=== PATIENT | female | born 1945 | race Caucasian/White ===

== ENCOUNTER 2021-02-18 13:22 | Emergency (ER) | payer MEDICARE, SELFPAY ==
--- NOTE | ~2021-02-18 | CT_ITS ---
EXAMINATION: CT ANGIOGRAM OF THE CHEST WITH AND WITHOUT CONTRAST (CT PULMONARY ANGIOGRAM FOR PE) CLINICAL INFORMATION: AMANDA, chest pain, SOB COMPARISON: Chest x-ray earlier today prior CTA chest 07/21/2011 TECHNIQUE: Prior to contrast administration, noncontrast localization images were obtained. Subsequently, multidetector volumetric imaging was performed from the thoracic inlet to below the diaphragms following the administration of 80 mL Omnipaque 350 intravenous contrast. No contrast reaction reported Sagittal, coronal, and MIP oblique sagittal reformatted images were obtained on the CT workstation, uploaded to PACS, and reviewed. This CT examination was performed using dose optimization techniques as appropriate, variously including the following: *Automated exposure control *Adjustment of mA and/or kV according to patient size (this includes techniques or standardized protocols for targeted exams where dose is matched to indication/reason for exam; i.e. extremities or head) *Use of iterative reconstruction technique FINDINGS: QUALITY OF STUDY/CONTRAST BOLUS: Suboptimal. There is extensive respiratory motion artifact. PULMONARY ARTERIES: No central pulmonary embolus seen. THORACIC AORTA: No aneurysm or dissection. LUNG: Extensive respiratory motion artifact. No focal consolidation or mass. PLEURA: No pleural effusion or pneumothorax. MEDIASTINUM: Mild cardiomegaly. No pericardial effusion. No hilar or mediastinal lymphadenopathy. No evidence of septal bowing or right heart strain. CHEST WALL/AXILLA: No axillary or internal mammary lymphadenopathy. OSSEOUS STRUCTURES: Multilevel degenerative changes of the spine. No acute or suspicious osseous abnormality. UPPER ABDOMEN: Unchanged hepatic cysts. Persistent diffuse prominence of the left adrenal gland. Normal right adrenal gland. Gallstones. No reflux of contrast into the hepatic veins to suggest elevated right heart pressures. CT/CT angio chest PE protocol IMPRESSION: Limited study due to extensive respiratory motion artifact. No central pulmonary embolus seen.
--- NOTE | ~2021-02-18 | US_ITS ---
EXAMINATION: US VENOUS ULTRASOUND WITH DOPPLER LOWER EXTREMITY, LEFT CLINICAL INFORMATION: swelling, redness COMPARISON: 08/08/2020 TECHNIQUE: Ultrasound of the deep veins is performed from the hip to the calf with compression sonography and color and pulse Doppler assessment. Spectral analysis with color-flow imaging is performed. FINDINGS: There is normal venous compression and respiratory variation and augmented flow. The visualized common femoral vein, superficial femoral vein, profunda femoral vein, popliteal vein, and the trifurcation region shows no evidence of deep venous thrombosis. A small Duong's cyst is noted (4.2 x 1.1 x 1.5 cm). Peroneal veins are not well seen due to overlying soft tissue edema. If the patient's symptoms persist, followup ultrasound in 5 days 7 days might be of value to exclude proximal propagation from a non-visualized calf vein. US/US venous duplex LE IMPRESSION: No DVT demonstrated in the left lower extremity.
--- NOTE | ~2021-02-18 | XR_ITS ---
EXAMINATION: XR CHEST CLINICAL INFORMATION: Shortness of breath COMPARISON: Chest x-ray 11/20/2015 TECHNIQUE: 2 views of the chest were obtained. FINDINGS: Lungs are clear. No pulmonary vascular congestion. There is no pleural effusion. The heart size is normal. The cardiac and mediastinal contours are normal. There are calcifications of the thoracic aorta. There are multilevel degenerative changes of dorsal spine. XR/XR chest 2V IMPRESSION: Unremarkable examination.
[2021-02-18 13:48] VITALS: BP 141/75; PULSE 92; RESP 20; TEMP 36.5; O2SAT 96; BMI 35.3
[2021-02-18 14:19] LABS: COVID-19 Test Negative (Negative)
[2021-02-18 17:08] LABS: MANUAL DIFF FLAG NO
[2021-02-18 17:10] LABS: Basophils Absolute Auto 0.1 X10*3/uL (0.0-0.2); Basophils Percent Auto 0.5 % (0-2); Eosinophils Absolute Auto 0.2 X10*3/uL (0.0-0.4); Hemoglobin 12.9 g/dl (12.0-16.0); Imm Gran Abs Auto 0.02 X10*3/uL (0.00-0.03); Imm Gran Pct Auto 0.2 % (0.0-0.4); Lymphocytes Absolute Auto 1.2 X10*3/uL (1.2-4.9); Lymphocytes Percent Auto 11.3 % (20-40); Mean Corpuscular HGB Conc 31.5 g/dl (31.0-35.0); Mean Corpuscular Hemoglobin 27.2 pg (27.0-33.0); Mean Corpuscular Volume 86.5 fL (80.0-98.0); Monocytes Absolute Auto 0.6 X10*3/uL (0.1-1.2); Monocytes Percent Auto 5.8 % (2-11); Neutrophils Absolute Auto 8.8 x10*3/uL (2.0-8.3); Neutrophils Percent Auto 80.2 % (45-73); Platelet Count 250 X10*3/uL (160-400); Red Blood Count 4.74 X10*6/uL (4.20-5.50); Red Cell Distribution Width 17.3 % (11.0-16.0)
[2021-02-18 17:27] LABS: Alanine Aminotransferase 24 U/L (0-31); Alkaline Phosphatase 106 U/L (39-117); Anion Gap 12 (12-20); Aspartate Amino Transferase 16 U/L (5-31); Bilirubin Total 0.6 mg/dL (0.0-1.0); Blood Urea Nitrogen 23 mg/dL (9-16); Calcium 9.8 mg/dL (8.4-10.2); Carbon Dioxide 28 mmol/L (22-29); Chloride 109 mmol/L (96-108); Creatinine Clr Calc Pharmacy 45.9; Estimated Glomerular Filt Rate 44; Glucose Random 169 mg/dL (60-115); Potassium 4.6 mmol/L (3.3-5.1); Sodium 144 mmol/L (135-145); Total Protein 6.8 g/dL (6.5-8.0)
--- NOTE | 2021-02-18 18:38 | ECG_ITS ---
Test Reason : SOB Blood Pressure : / mmHG Vent. Rate : 086 BPM Atrial Rate : 086 BPM P-R Int : 158 ms QRS Dur : 112 ms QT Int : 382 ms P-R-T Axes : 050 -07 111 degrees QTc Int : 457 ms Normal sinus rhythm Left ventricular hypertrophy with repolarization abnormality ( Richy product ) Abnormal ECG When compared with ECG of 20-NOV-2015 12:05, No significant change was found Referred By: Marika Rehman Electronically Signed By:UMER ANAYA MD
[2021-02-18 18:42] VITALS: BP 161/68; PULSE 93; RESP 20; TEMP 36.7; O2SAT 96
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
--- NOTE | 2021-02-18 19:31 | PC.NURSE ---
pt resting in stretcher, pt awaiting for respiratory with tx. pt denies any complaints and watching tv at this time.
[2021-02-18 19:34] LABS: B Type Natriuretic Peptide 249 pg/mL (<100)
[2021-02-18] MEDS: Albuterol/Iprat 2.5/0.5MG 3 ML AMPUL.NEB INHALE (19:40)
[2021-02-18 19:43] VITALS: PULSE 93; RESP 18; O2SAT 96
--- NOTE | 2021-02-18 20:37 | PC.NURSE ---
respiratory in room for tx. IV placed for pt to go to Ct. CT aware pt is ready.
[2021-02-18 20:42] LABS: Troponin-I High Sensitivity 83.2 ng/L (<3.5-17.0)
[2021-02-18 21:06] VITALS: BP 123/91; PULSE 100; RESP 20; TEMP 36.8; O2SAT 93
[2021-02-18] MEDS: iohexoL 350 MG/ML 100 ML INFUS..BTL 65 ML IV (21:11)
[2021-02-18] MEDS: Aspirin 81 MG TAB.CHEW 162 MG PO (21:16)
[2021-02-18 21:47] LABS: Troponin-I High Sensitivity 93.4 ng/L (<3.5-17.0)
--- NOTE | 2021-02-18 22:08 | PC.NURSE ---
in room for re-eval. respiratory tx ordered for pt. pt awaiting for further orders. pt remains alert, respirations easy, n/l. skin w/d.
[2021-02-18] MEDS: methylPREDNISolone Sod Succ 125 MG/2 ML VIAL IVPUSH (22:40)
--- NOTE | 2021-02-18 22:43 | PC.NURSE ---
pt medicated as per emar.
[2021-02-18] MEDS: Albuterol Sulfate (0.083%) 2.5 MG/3 ML VIAL.NEB 5 MG INHALE (22:44)
[2021-02-18 22:46] VITALS: PULSE 106; RESP 20; O2SAT 95
[2021-02-18 22:49] VITALS: BP 156/78; PULSE 94; RESP 20; O2SAT 100
== END 2021-02-18 23:19 | disposition home or self-care (01) ==
PROVIDERS: Physician Assistant; Emergency Provider Internal Medicine; PCP Internal Medicine
DX: R06.00 Dyspnea, unspecified (principal); E11.9 Type 2 diabetes mellitus without complications; I10 Essential (primary) hypertension; R60.0 Localized edema; Z87.891 Personal history of nicotine dependence; Z20.822 Contact with and (suspected) exposure to COVID-19
CPT/HCPCS: 36415; 71046; 71275; 80053; 83880; 84484; 85025; 87635; 93005; 93971; 94640; 94644; 96374; 99283; 99284; J2930; Q9967

== ENCOUNTER → 2021-04-04 15:28 | Outpatient (BNVA) | payer MEDICARE, SELFPAY | PROVIDERS: PCP Internal Medicine; Visit Provider Hospitalist | DX: J44.9 Chronic obstructive pulmonary disease, unspecified (principal) | CPT/HCPCS: 99202 ==

== ENCOUNTER 2021-04-09 18:13 | Emergency (ER) | payer MEDICARE, SELFPAY ==
--- NOTE | ~2021-04-09 | XR_ITS ---
EXAMINATION: XR CHEST CLINICAL INFORMATION: Shortness of breath. COMPARISON: Prior chest February 2021. CT chest 02/18/2021. TECHNIQUE: Frontal view of the chest was obtained. FINDINGS: There are small bilateral pleural effusions. Lung volumes are decreased. Linear opacity at the bases. Additional more patchy consolidation at the bases and increased interstitial markings bilaterally. Cardiac silhouette is mildly enlarged but unchanged and partially obscured by the effusions. Calcification of the dorsal aorta. Bone and soft tissues unremarkable. XR/XR chest 1V IMPRESSION: 1. Findings suspicious for congestive heart failure with bilateral airspace disease and bilateral pleural effusions. Bibasilar atelectasis. 2. Cannot exclude pneumonia.
[2021-04-09 18:16] VITALS: BP 128/76; PULSE 112; RESP 30; TEMP 36.7; O2SAT 73; BMI 36.6
--- NOTE | 2021-04-09 18:29 | PC.NURSE ---
Pt arrives from triage cc dyspnea. pt 73% on RA. Pt placed on 6L O2. O2 sats 96%.
[2021-04-09 18:30] VITALS: O2SAT 96
--- NOTE | 2021-04-09 18:33 | ED.SOB ---
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 comes for increased shortness of breath for last 4- 5 days getting worse now patient denies any chest patient denies any chest pain patient is saturating 73% at room air she is not on any oxygen at home Related Data Home Medications Medication Instructions Recorded Confirmed amlodipine 10 mg tablet 10 mg PO DAILY 04/04/21 atorvastatin 40 mg tablet 40 mg PO DAILY 04/04/21 insulin glargine 100 unit/mL (3 64 unit SUBCUT BEDTIME 04/04/21 mL) subcutaneous pen (Lantus Solostar U-100 Insulin) insulin glulisine U-100 100 SUBCUT 04/04/21 unit/mL subcutaneous solution (Apidra U-100 Insulin) insulin lispro 100 unit/mL SUBCUT 04/04/21 subcutaneous pen levothyroxine 125 mcg tablet 125 mcg PO DAILY 04/04/21 lisinopril 10 mg tablet 20 mg PO DAILY 04/04/21 metoprolol succinate 50 mg 50 mg PO DAILY 04/04/21 tablet,extended release 24 hr tiotropium bromide 18 mcg capsule 1 cap INHALATION DAILY 04/04/21 with inhalation device (Spiriva with HandiHaler) Previous Rx's Medication Instructions Recorded albuterol sulfate 90 mcg/actuation 2 puff INHALATION Q4-6H PRN #8.5 g 02/18/21 aerosol inhaler (ProAir HFA) furosemide 20 mg tablet (Lasix) 20 mg PO QAM #30 tab 02/18/21 albuterol sulfate 90 mcg/actuation 2 inh INHALATION Q6H PRN 30 Days 04/04/21 aerosol inhaler #18 g fluticasone fur. 100 mcg-umeclid 1 inh INHALATION DAILY 30 Days #60 04/04/21 62.5 mcg-vilant 25 mcg ea inhalat.powder (Trelegy Ellipta) Allergies Allergy/AdvReac Type Severity Reaction Status Date / Time From ZOSYN Allergy Unknown ANGIOEDEMA, Uncoded 04/04/21 15:36 RED RASH zosyn Allergy Unknown rash Uncoded 04/04/21 15:36 Review of Systems Review of Systems: Yes all other systems are reviewed and are negative [facility] Past Medical History Medical History COPD (chronic obstructive pulmonary disease) Social History Social History Patient Tobacco Use Status: Former Tobacco user Tobacco use type: Cigarette Years Smoked: 50 years Advance Directives: No Advance Directives Information Provided: No Physical Exam Vital Signs: Vital Signs: Last Vital Signs Temp 98.6 F 04/09/21 19:43 Pulse 100 04/09/21 20:09 Resp 17 04/09/21 20:09 BP 115/56 L 04/09/21 20:09 Pulse Ox 94 04/09/21 20:09 BMI result Body Mass Index 36.6 Appearance: Alert. Oriented X3. In moderate respiratory distress Eyes: PERRLA, No Nystagmus no pallor icterus ENT: Pharynx normal. Oral Mucosa moist Neck: Normal inspection. Neck supple. CVS: Normal heart rate and rhythm. Pulses normal. Respiratory: No respiratory distress. Equal air entry bilateral, bilateral prolonged expiration with diffuse crackles Abdomen: Soft and nontender. Bowel sounds are present, no mass palpable, Skin: Skin warm and dry. Normal skin color. Normal skin turgor. Extremities:2+ lower extremity edema. No calf tenderness Neuro: Oriented X 3. No motor deficit. MDM - SOB/Dyspnea MDM Narrative Medical decision making narrative: Patient with COPD increased shortness of breath no known coronary artery disease was seen here on 02/18/2021 1 troponin was elevated to 83.2 but there was no delta change. At this time patient came with worsening of shortness of breath for 4 5 days got worse since last night EKG showed ST elevation with significant ST depression in inferolateral leads case discussed Dr. Song at [facility] cardiac catheterization will take the patient for cardiac catheterization patient received 180 mg of Brilinta 324 mg of aspirin 5000 units of heparin and 40 mg IV Lasix Lab Data Attestation: I reviewed the patient's lab results. Result diagrams: 04/09/21 19:28 04/09/21 19:28 Labs: Lab Results 04/09/21 04/09/21 04/09/21 Range/Units 19:28 19:28 19:28 WBC 18.7 H (4.8-10.8) X10*3/uL RBC 4.60 (4.20-5.50) X10*6/uL Hgb 12.2 (12.0-16.0) g/dl Hct 41.4 (37.0-47.0) % MCV 90.0 (80.0-98.0) fL MCH 26.5 L (27.0-33.0) pg MCHC 29.5 L (31.0-35.0) g/dl RDW 18.2 H (11.0-16.0) % Plt Count 264 (160-400) X10*3/uL MPV 10.9 (9.4-12.3) fL Immature Gran % (Auto) 0.5 H (0.0-0.4) % Neut % (Auto) 91.7 H (45-73) % Lymph % (Auto) 3.5 L (20-40) % [place] % (Auto) 4.1 (2-11) % Eos % (Auto) 0.0 (0-4) % Baso % (Auto) 0.2 (0-2) % Lymph # (Auto) 0.7 L (1.2-4.9) X10*3/uL [place] # (Auto) 0.8 (0.1-1.2) X10*3/uL Eos # (Auto) 0.0 (0.0-0.4) X10*3/uL Baso # (Auto) 0.0 (0.0-0.2) X10*3/uL Abs Immat Gran (auto) 0.10 H (0.00-0.03) X10*3/uL Absolute Neuts (auto) 17.1 H (2.0-8.3) x10*3/uL Absolute Nucleated RBC 0.000 (0.0-0.012) X10*3/uL Nucleated RBC % (auto) 0.0 (0.0-0.2) /100WBC VBG pH (7.32-7.43) VBG pCO2 mmHg VBG pO2 mmHg VBG HCO3 (22-26) mmol/L VBG O2 Saturation % VBG Base Excess mmol/L Sodium 145 (135-145) mmol/L Potassium 4.8 (3.3-5.1) mmol/L Chloride 106 (96-108) mmol/L Carbon Dioxide 29 (22-29) mmol/L Anion Gap 15 (12-20) BUN 38 H D (9-16) mg/dL Creatinine 1.79 H (0.5-1.4) mg/dL Estim Creat Clear Calc 28.8 Estimated GFR 28 Random Glucose 273 H (60-115) mg/dL Lactic Acid (0.5-2.0) mmol/L Calcium 9.9 (8.4-10.2) mg/dL Magnesium 2.4 (1.6-2.6) mg/dL Total Bilirubin 0.4 (0.0-1.0) mg/dL AST 47 H D (5-31) U/L ALT 27 (0-31) U/L Alkaline Phosphatase 83 D (39-117) U/L Troponin I High Sens (<3.5-17.0) ng/L B-Natriuretic Peptide (<100) pg/mL Total Protein 6.8 (6.5-8.0) g/dL Albumin 4.1 (3.5-5.0) g/dL COVID-19 (HARSIHL) Negative (Negative) COVID-19 Clin Com See Note 04/09/21 04/09/21 04/09/21 Range/Units 19:28 19:28 19:33 WBC (4.8-10.8) X10*3/uL RBC (4.20-5.50) X10*6/uL Hgb (12.0-16.0) g/dl Hct (37.0-47.0) % MCV (80.0-98.0) fL MCH (27.0-33.0) pg MCHC (31.0-35.0) g/dl RDW (11.0-16.0) % Plt Count (160-400) X10*3/uL MPV (9.4-12.3) fL Immature Gran % (Auto) (0.0-0.4) % Neut % (Auto) (45-73) % Lymph % (Auto) (20-40) % [place] % (Auto) (2-11) % Eos % (Auto) (0-4) % Baso % (Auto) (0-2) % Lymph # (Auto) (1.2-4.9) X10*3/uL [place] # (Auto) (0.1-1.2) X10*3/uL Eos # (Auto) (0.0-0.4) X10*3/uL Baso # (Auto) (0.0-0.2) X10*3/uL Abs Immat Gran (auto) (0.00-0.03) X10*3/uL Absolute Neuts (auto) (2.0-8.3) x10*3/uL Absolute Nucleated RBC (0.0-0.012) X10*3/uL Nucleated RBC % (auto) (0.0-0.2) /100WBC VBG pH 7.23 L (7.32-7.43) VBG pCO2 73 mmHg VBG pO2 66 mmHg VBG HCO3 31 H (22-26) mmol/L VBG O2 Saturation 85.0 % VBG Base Excess 1.2 mmol/L Sodium (135-145) mmol/L Potassium (3.3-5.1) mmol/L Chloride (96-108) mmol/L Carbon Dioxide (22-29) mmol/L Anion Gap (12-20) BUN (9-16) mg/dL Creatinine (0.5-1.4) mg/dL Estim Creat Clear Calc Estimated GFR Random Glucose (60-115) mg/dL Lactic Acid 1.7 (0.5-2.0) mmol/L Calcium (8.4-10.2) mg/dL Magnesium (1.6-2.6) mg/dL Total Bilirubin (0.0-1.0) mg/dL AST (5-31) U/L ALT (0-31) U/L Alkaline Phosphatase (39-117) U/L Troponin I High Sens 67244.6 H* D (<3.5-17.0) ng/L B-Natriuretic Peptide 2565 H (<100) pg/mL Total Protein (6.5-8.0) g/dL Albumin (3.5-5.0) g/dL COVID-19 (HARSHIL) (Negative) COVID-19 Clin Com ECG Data Attestation: I personally reviewed and interpreted this ECG as follows: Interpretation: Normal sinus rhythm heart rate 95 beats per minute Diffuse ST depression lead 1 and lead 2, avl, V5 V6, ST-elevation 3 mm lead 3 and AVR, LVH impression acute STEMI inferolateral wall Critical Care Time Critical Care Time Critical Care Time: Yes Total Critical Care Time: 35 Attestation: I spent 35 minutes of critical care, with interventions, assessments, speaking to patient, consultants, Discharge Plan Discharge Clinical Impression: ST elevation (STEMI) myocardial infarction involving right coronary artery, COPD (chronic obstructive pulmonary disease), Congestive heart failure Patient Disposition: [facility] Transfer Details: To [facility] Cardiac catheterization Lab Dr. Song Prescriptions: No Action albuterol sulfate [ProAir HFA] 90 mcg/actuation HFA aerosol inhaler 2 puff inhalation Q4-6H PRN (Reason: Wheezing) Qty: 8.5 0RF furosemide [Lasix] 20 mg tablet 20 mg PO QAM Qty: 30 0RF Apidra U-100 Insulin 100 unit/mL solution subcut 0RF amlodipine 10 mg tablet 10 mg PO DAILY 0RF atorvastatin 40 mg tablet 40 mg PO DAILY 0RF metoprolol succinate 50 mg tablet extended release 24 hr 50 mg PO DAILY 0RF Spiriva with HandiHaler 18 mcg capsule, w/inhalation device 1 cap inhalation DAILY 0RF lisinopril 10 mg tablet 20 mg PO DAILY 0RF levothyroxine 125 mcg tablet 125 mcg PO DAILY 0RF Lantus Solostar U-100 Insulin 100 unit/mL (3 mL) insulin pen 64 unit subcut BEDTIME 0RF insulin lispro 100 unit/mL insulin pen subcut 0RF Trelegy Ellipta 100-62.5-25 mcg blister with device 1 inh inhalation DAILY 30 Days Qty: 60 11RF albuterol sulfate 90 mcg/actuation HFA aerosol inhaler 2 inh inhalation Q6H PRN (Reason: shortness of breath or wheezing) 30 Days Qty: 18 12RF Interventions: Acute Care Transfer Worksheet (ED) Last Done: 04/09/21 20:27 Discharge Date/Time: 04/09/21 20:19
--- NOTE | 2021-04-09 18:45 | ECG_ITS ---
Test Reason : SOB Blood Pressure : / mmHG Vent. Rate : 095 BPM Atrial Rate : 095 BPM P-R Int : 154 ms QRS Dur : 114 ms QT Int : 376 ms P-R-T Axes : 042 034 166 degrees QTc Int : 472 ms Normal sinus rhythm Minimal voltage criteria for LVH, may be normal variant ( Richy product ) Possible Lateral infarct , new Inferior infarct , possibly acute ACUTE WA / STEMI Consider right ventricular involvement in acute inferior infarct Abnormal ECG When compared with ECG of 18-FEB-2021 18:47, significant changes noted. Referred By: Morales Guzmán Electronically Signed By:BELKIS CONTRERAS
[2021-04-09 19:05] VITALS: PULSE 100; RESP 26; O2SAT 96
[2021-04-09] MEDS: Albuterol Sulfate (0.083%) 2.5 MG/3 ML VIAL.NEB 5 MG INHALE (19:05)
[2021-04-09] MEDS: Albuterol/Iprat 2.5/0.5MG 3 ML AMPUL.NEB INHALE (19:05)
[2021-04-09] MEDS: methylPREDNISolone Sod Succ 125 MG/2 ML VIAL IVPUSH (19:33)
[2021-04-09 19:34] LABS: MANUAL DIFF FLAG NO
[2021-04-09 19:36] LABS: Basophils Percent Auto 0.2 % (0-2); Hematocrit 41.4 % (37.0-47.0); Hemoglobin 12.2 g/dl (12.0-16.0); Imm Gran Pct Auto 0.5 % (0.0-0.4); Lymphocytes Absolute Auto 0.7 X10*3/uL (1.2-4.9); Lymphocytes Percent Auto 3.5 % (20-40); Mean Corpuscular HGB Conc 29.5 g/dl (31.0-35.0); Mean Corpuscular Hemoglobin 26.5 pg (27.0-33.0); Mean Platelet Volume 10.9 fL (9.4-12.3); Monocytes Absolute Auto 0.8 X10*3/uL (0.1-1.2); Monocytes Percent Auto 4.1 % (2-11); Neutrophils Absolute Auto 17.1 x10*3/uL (2.0-8.3); Neutrophils Percent Auto 91.7 % (45-73); Platelet Count 264 X10*3/uL (160-400); Red Cell Distribution Width 18.2 % (11.0-16.0); SCAN SMEAR FLAG 1; White Blood Count 18.7 X10*3/uL (4.8-10.8)
[2021-04-09 19:39] LABS: Venous Blood Gas Refer to POC result
[2021-04-09 19:40] LABS: VBG Base Excess 1.2 mmol/L; VBG HCO3 31 mmol/L (22-26); VBG pCO2 73 mmHg; VBG pH 7.23 (7.32-7.43); VBG pO2 66 mmHg
[2021-04-09 19:43] VITALS: PULSE 88; RESP 25; TEMP 37; O2SAT 95
[2021-04-09 19:52] LABS: Lactic Acid 1.7 mmol/L (0.5-2.0)
[2021-04-09 19:55] LABS: Alanine Aminotransferase 27 U/L (0-31); Albumin Level 4.1 g/dL (3.5-5.0); Alkaline Phosphatase 83 U/L (39-117); Anion Gap 15 (12-20); Aspartate Amino Transferase 47 U/L (5-31); Bilirubin Total 0.4 mg/dL (0.0-1.0); Blood Urea Nitrogen 38 mg/dL (9-16); Calcium 9.9 mg/dL (8.4-10.2); Carbon Dioxide 29 mmol/L (22-29); Chloride 106 mmol/L (96-108); Creatinine Clr Calc Pharmacy 28.8; Estimated Glomerular Filt Rate 28; Glucose Random 273 mg/dL (60-115); Magnesium 2.4 mg/dL (1.6-2.6); Potassium 4.8 mmol/L (3.3-5.1); Sodium 145 mmol/L (135-145); Total Protein 6.8 g/dL (6.5-8.0)
[2021-04-09] MEDS: Heparin Sodium,Porcine 5,000 UNIT/ML VIAL 5000 UNIT IVPUSH (19:56)
[2021-04-09] MEDS: Ticagrelor 90 MG TABLET 180 MG PO (19:56)
[2021-04-09] MEDS: Aspirin 81 MG TAB.CHEW 324 MG PO (19:58)
[2021-04-09 20:01] VITALS: BP 113/59; PULSE 101; RESP 16; O2SAT 93
[2021-04-09] MEDS: Furosemide 40 MG/4 ML VIAL IVPUSH (20:06)
[2021-04-09 20:09] VITALS: BP 115/56; PULSE 100; RESP 17; O2SAT 94
--- NOTE | 2021-04-09 20:12 | PC.NURSE ---
EMS arrival 2009
[2021-04-09 20:13] LABS: B Type Natriuretic Peptide 2565 pg/mL (<100)
[2021-04-09 20:15] LABS: COVID-19 Test Negative (Negative)
--- NOTE | 2021-04-09 20:16 | PC.NURSE ---
EMS out of room and in transfer at 2019
--- NOTE | 2021-04-09 20:25 | PC.NURSE ---
call placed to edison andino) per pts request to inform him that she will be transported to [facility] for a STEMI.
== END 2021-04-09 20:19 | disposition short-term general hospital (02) ==
PROVIDERS: Emergency Provider Internal Medicine; PCP Internal Medicine
DX: I21.11 ST elevation (STEMI) myocardial infarction involving right coronary artery (principal); J44.9 Chronic obstructive pulmonary disease, unspecified; I50.9 Heart failure, unspecified; R06.00 Dyspnea, unspecified; E11.9 Type 2 diabetes mellitus without complications; I10 Essential (primary) hypertension; Z20.822 Contact with and (suspected) exposure to COVID-19; Z79.4 Long term (current) use of insulin; Z87.891 Personal history of nicotine dependence; Z79.899 Other long term (current) drug therapy
CPT/HCPCS: 36415; 71045; 80053; 82803; 83605; 83735; 83880; 84484; 85025; 87040; 87635; 93005; 94640; 94644; 96360; 96361; 99285; J1940; J2930